=== PATIENT | female | born 1960 ===

== ENCOUNTER 2023-11-26 19:40 | Emergency (ER) | payer BC ==
[2023-11-26] MEDS: Ketorolac 30 MG/ML SDV IM ONE (20:17)
[2023-11-26] MEDS: Cyclobenzaprine 10 MG Tab PO ONE (20:18)
[2023-11-26] MEDS: Ondansetron 4 MG Tab.DIS PO ONE (20:18)
[2023-11-26] MEDS: Lidocaine 5% 700 MG Patch TOP ONE (21:03)
== END 2023-11-26 21:37 | disposition home or self-care (01) ==
LOC: DL.ED 19:40
DX: S33.5XXA Sprain of ligaments of lumbar spine, initial encounter (principal); Z88.2 Allergy status to sulfonamides; Z79.899 Other long term (current) drug therapy; Z88.6 Allergy status to analgesic agent; Z88.1 Allergy status to other antibiotic agents; Z88.5 Allergy status to narcotic agent; W01.0XXA Fall on same level from slipping, tripping and stumbling without subsequent striking against object, initial encounter
CPT/HCPCS: 93005; 93010; 96372; 99283; A9270; J1885

== ENCOUNTER 2023-11-28 15:08 | Emergency (ER) | payer BC ==
[2023-11-28 16:17] LABS: BASOPHILS PERCENT AUTO 0.2 % (0.0-1.0); EOSINOPHILS PERCENT AUTO 0.1 % (1.0-3.0); HEMATOCRIT 39.8 % (37.0-47.0); HEMOGLOBIN 13.4 g/dL (12.0-16.0); LYMPHOCYTES PERCENT AUTO 11.7 % (20.5-50.1); MEAN CORPUSCULAR HEMOGLOBIN 33.8 pg (27.0-34.0); MEAN CORPUSCULAR HGB CONC 33.7 g/dL (33.0-35.0); MEAN CORPUSCULAR VOLUME 100.5 fL (80-100); MONOCYTES PERCENT AUTO 6.7 % (2-8); NEUTROPHILS PERCENT AUTO 81.3 % (42.2-75.2); PLATELET COUNT,PLT 313 10^3/uL (150-450); RED BLOOD CELL COUNT 3.96 10^6/uL (4.2-5.4); WHITE BLOOD CELL COUNT,WBC 8.1 10^3/uL (5.0-10.0)
[2023-11-28] MEDS: Sodium Chloride 0.9% 1,000 ML IV ONE (16:17)
[2023-11-28 16:37] LABS: ALBUMIN 3.2 g/dL (3.4-5.0); ANION GAP 13.1 mEq/L (7-13); BILIRUBIN TOTAL 0.6 mg/dL (0.2-1.0); BUN/CREATININE RATIO 11.3 (No establ ref range); CALCIUM 9.3 mg/dL (8.5-10.1); CREATININE 0.71 mg/dL (0.55-1.02); EST CRCL DRUG DOSING (CG) 65.81 mL/min; POTASSIUM,K 4.1 mmol/L (3.5-5.1); PROTEIN TOTAL,TP 7.4 g/dL (6.4-8.2)
[2023-11-28 16:39] LABS: A/G RATIO 0.76
[2023-11-28] MEDS: Orphenadrine 60 MG/2 ML Inj IM ONE (16:57)
[2023-11-28] MEDS: Iopamidol 612 MG/ML 100 ML Bottle IVPUSH ONE (17:25)
[2023-11-28] MEDS: predniSONE 20 MG Tab PO ONE (18:47)
== END 2023-11-28 18:57 | disposition home or self-care (01) ==
LOC: DL.ED 15:08
DX: S39.012A Strain of muscle, fascia and tendon of lower back, initial encounter (principal); I10 Essential (primary) hypertension; K21.9 Gastro-esophageal reflux disease without esophagitis; E03.9 Hypothyroidism, unspecified; Z88.1 Allergy status to other antibiotic agents; Z88.2 Allergy status to sulfonamides; Z88.5 Allergy status to narcotic agent; Z88.6 Allergy status to analgesic agent; Z88.8 Allergy status to other drugs, medicaments and biological substances; Z79.899 Other long term (current) drug therapy; Z90.49 Acquired absence of other specified parts of digestive tract; W19.XXXA Unspecified fall, initial encounter
CPT/HCPCS: 36415; 72100; 74018; 74177; 80053; 85025; 96360; 96372; 99282; 99284; J2360; J7030; J7512; Q9967